=== PATIENT | male | born 1980 | race Caucasian/White ===

== ENCOUNTER 2025-02-25 13:24 | Outpatient (AMB) | payer BC, SELFPAY ==
--- OUTSIDE RECORDS SUMMARY | 2024-01-29 10:30 | XMS_ITS ---
Author Organization [address] [id number] Care Team Providers Care [employer] Worker Name Role Phone Demetris Aranda Unavailable [phone] REASON FOR VISIT ROV/ROF Encounters Encounter Location Date Provider Diagnosis [address] [phone] 01/29/2024 Demetris Aranda Plan Of Treatment No Information Progress Notes * CARENJake Deras SDOB: [birth year] (44 yo M)Acc No.[id number]:01/29/2024 Progress Notes Patient: Ran RIVERS Jake Edel Provider: Ran Aranda ND :1980 A ge:43 Y S ex:Male Date:01/29/2024 Phone: Address:[address] [place] [address], [id number] Subjective: * Chief Complaints: * 1 . ROV/ROF. * Medical History: Objective: * Vitals: Assessment: Plan: * Treatment: * * Electronic signature of Kamila Aranda ND on 02/25/2025 at 01:44 PM EST Sign off status: Pending * Provider: Ran Aranda ND Date: Generated for Tanna gonzalez/Mary/Ap on: 04/27/2024 01:44 PM EST
--- OUTSIDE RECORDS SUMMARY | 2024-02-18 11:00 | XMS_ITS ---
Author Organization [facility] Address [address] [place] [id number] Care Team Providers Care Test Deck Supervisor Name Role Phone Atifparag Demetris Unavailable [phone] REASON FOR VISIT ROV/ROF Medications Medication SIG (Take, Route, Frequency, Duration) Notes Start Date End Date Status valACYclovir HCl 500 MG 1 tablet Orally Once a day Not-Taking Encounters Encounter Location Date Provider Diagnosis [address] [phone] 02/18/2024 Demetris Aranda Assessments Encounter Date Diagnosis (ICD Code) Assessment Notes Treatment Notes Treatment Clinical Notes Section Notes 02/18/2024 Other 30 minutes spent on patient care including: -preparing to see the patient by reviewing past charts, past treatment plans, current and past labs -obtaining and/or reviewing separately obtained history -performing a medically appropriate examination and/or evaluation -counseling and educating the patient and/or family on diagnostic results, impression, recommendations, risk/benefit, instructions, risk factor reduction, and education on condition -recommending supplement usage, tests, or procedures -documenting clinical information in patients chart -independently interpreting results and communicating results to the patient and/or patients family for care coordination Plan Of Treatment No Information Progress Notes * Jake MENDEZ SDOB: [birth year] (44 yo M)Acc No.[id number]:02/18/2024 Progress Notes Patient: Ran PANDYAJake HINOJOSA Provider: Ran Aranda ND :1980 A ge:43 Y S ex:Male Date:02/18/2024 Phone: Address:[address] [place] [address] Subjective: * Chief Complaints: * 1 . ROV/ROF. * HPI: H PI: 08/26/23 reports persistent knee pain saw ortho last fall xray shows some arthritis did not complete PT due to insurance challenges reports slow recovery of hair loss on extremities 02/13/23 medial knee pain bilat multiple spartan races in past few months maintaining crossfit will see ortho next week friend opening PT office locally Hair Loss// persistent off antiviral rx wonder if related to salicylic acid facewash 09/03/22 PHONG, iron, sed rate all WNL pt reports some regrowth now off antiviral rx and will use prn instead of daily ... patchy hair loss over past year + facial, arms, legs bilat. not a random distribution. C C1: Cardio// 08/26/23 did not complete ca score did not recall conversation from last visit back to [facility] usu 2-3x per week variable diet. mostly good 02/13/23 overall well regular exercise more consistent healthy diet off all supplements reviewed cardio IQ reduced IR score lower LDL albeit higher sdLDL apoB stable 09/03/22 continue to train for spartan races in october, nov, dec reviewed cardio IQ higher LDL but lower sdLDL, particle number IR score moderate at 45 discussed dietary sugars, carbs as causative ox LDL wnl omega 3 WNL 08/07/22 did not complete labs reports overall doing well 02/06/22 reports overall doing well lots of hiking through summer [employer] race in dec good for physical/mental health haven't been to gym intermittent with weight 01/16/21 reviewed cardio IQ improvement in LDL, HDL, trigs reports overall doing better with eating, exercise intermittent fasting few days per wk had some weight gain over past months - was up to 245 some recent weight loss down to 233 05/04 reviewed cardio IQ - worsened LDL, trigs, particle numbers, lower omega 3 reports doing moderately okay with eating, activity, stress management difficult to maintain also tested right after holidays discussed pandemic/life stressors doing some intermittent fasting - more days than not fam hx CVD. C C2: Mood// 08/26/23 overall well 2 yrs with girlfriend. moved in, going well keep up with crossfit 02/13/23 mood good stable with regular exercise relationship good therapist 09/03/22 overall well good relationship maintaining with therapist training for Normal 02/06/22 doing well new home. good relationship. weekly with therapist hiking over summer felt great no rx 05/04 maintaining rx fluoxetine mood has been stable hit rough patch with exwife over ambar decided will do more for self will move back to [place] closer to rest of family - plan for [place] in fall maintaining with therapist no longer in relationship actively dating trying to maintain mostly healthy diet, some exercise occas stress eating ... D iet/Exercise: more veggies, whole foods less carbs some intermittent fasting b: skip. eggs, pelayo l: chicken, veg d: varied snack: protein bar, veg liquid: water through day. 3-5 cups coffee. occas energy drink bother: none ... exercise: crossfit hiking hot yoga. D igestion: BM daily WNL denies regular digestive trouble. S leep: 08/26/23 reports significant snoring residue of breath right strips not tolerated saw sleep doctor sleep study scheduled for early september. L bob: live with girlfriend going well 2018 kids half time. 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 S upplements: Vit D3 4000 B12 fish oil hair skin nail metabolism booster formula [employer] mens multi. C are Team: 08/26/23 establishing with PCP in [place] upcoming. * ROS: G eneral/Constitutional: Patient denies c hills, fever, change in appetite, lightheadedness. E NT: Patient denies d ecreased hearing, decreased sense of smell, difficulty swallowing. P atient complaining of h x of ear pain, ear infections - none recently. R espiratory: Patient denies c hest pain, sputum production, wheezing, cough. C ardiovascular: Patient denies d yspnea on exertion, fluid accumulation in the legs, palpitations. G astrointestinal: Patient denies a bdominal pain, change in bowel habits, nausea. H ematology: Patient denies d izziness, easy bruising, weakness. ? G enitourinary: Patient complaining of h erpes simplex II - managed with oral antiviral prn. S kin: Comments S [facility] for details. N eurologic: Patient denies b alance difficulty, difficulty speaking, loss of strength. * Medical History: * Medications: N ot-Taking valACYclovir HCl 500 MG Tablet 1 tablet Orally Once a day Objective: * Vitals: * Examination: G eneral Examination: GENERAL APPEARANCE: a lert, well hydrated, in no distress .? HEAD: n ormocephalic, atraumatic. EYES: p upils equal, round, reactive to light and accommodation, conjunctiva clear. EARS: n ormal. NOSE: e xternal nose- no gross deformities.. NECK/THYROID: n khadijah supple, full range of motion, trachea midline. SKIN: n ormal, good turgor, no rashes, no suspicious lesions, normal hair distribution, warm and dry. LUNGS: n o wheezes, rales, rhonchi. CHEST: n o gross rib deformity, normal shape and expansion.? ABDOMEN: n ondistended. BACK: f ull range of motion, normal. NEUROLOGIC: c ognitive exam grossly normal, cooperative with exam, cranial nerves 2-12 grossly intact, gait normal. PSYCH: a lert, oriented. Assessment: Plan: * Treatment: * Procedure Codes: n show NO SHOW * Preventive Medicine: PT for knee Copy on sleep study Continue current treatments Keep up the healthy diet. Portion Control LImit carbs and sugars Maintain with therapist Fasting labs 2 wks prior to next apt. * * Electronic signature of Kamila Aranda ND on 02/25/2025 at 01:43 PM EST Sign off status: Pending * Provider: Ran Aranda ND Date: 04/19/2023 Generated for Tanna gonzalez/Mary/Ap on: 04/27/2024 01:43 PM EST History and Physical Notes * HPI (History of Present Illness) Category Sub-Category Detail Notes Category Not es Diet/Exercise more veggies, whole foods less carbs some intermittent fasting b: skip. eggs, pelayo l: chicken, veg d: varied snack: protein bar, veg liquid: water through day. 3-5 cups coffee. occas energy drink bother: none ... exercise: crossfit hiking hot yoga HPI 08/26/23 reports persistent knee pain saw ortho last fall xray shows some arthritis did not complete PT due to insurance challenges reports slow recovery of hair loss on extremities 02/13/23 medial knee pain bilat multiple spartan races in past few months maintaining crossfit will see ortho next week friend opening PT office locally Hair Loss// persistent off antiviral rx wonder if related to salicylic acid facewash 09/03/22 PHONG, iron, sed rate all WNL pt reports some regrowth now off antiviral rx and will use prn instead of daily ... patchy hair loss over past year + facial, arms, legs bilat. not a random distribution Supplements Vit D3 4000 B12 fish oil hair skin nail metabolism booster formula [employer] mens multi Lifestyle live with girlfriend going well 2018 kids half time. 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 NECK/THYROID: neck supple, full ra nge of motion, trachea midline CHEST: no gross rib deformi ty, normal shape and expansion LUNGS: no wheezes, rales, r honchi ABDOMEN: nondistended NEUROLOGIC: cognitive exam gross ly normal, cooperative with exam, cranial nerves 2-12 grossly intact, gait normal SKIN: normal, good turgor, no rashes, no suspicious lesions, normal hair distribution, warm and dry BACK: full range of motion , normal PSYCH: alert, oriented
--- OUTSIDE RECORDS SUMMARY | 2024-10-25 10:52 | XMS_ITS ---
Author Organization [facility] Address [address] [place], [place] [phone] Care Team Providers Care Rocket Assembly Operator Name Role Phone DEIDRA MARSHALL Primary Care Provider [phone] REASON FOR VISIT Parameds Medical Records Request Encounters Encounter Location Date Provider Diagnosis [address] [address] 10/25/2024 DEIDRA MARSHALL PLAN OF TREATMENT Next Appt Details Provider Name:DEIDRA MARSHALL, 09/27/2025 09:00:00 AM, [address] [place], [phone],
--- OUTSIDE RECORDS SUMMARY | 2024-11-15 10:36 | XMS_ITS ---
Author Organization [facility] Address [address] [place], [place] [id number] Care Team Providers Care Bulk Sausage Casing Tier Off Name Role Phone DEIDRA MARSHALL Primary Care Provider [phone] REASON FOR VISIT old records PROBLEMS Problem Type ICD Code Onset Dates Problem Status W/U Status Risk SNOMED Code Notes Problem Dyslipidemia (E78.5) Active confirmed 773757674 Problem Low serum HDL (R74.8) Active confirmed 799781698 Encounters Encounter Location Date Provider Diagnosis [address] [address] 11/15/2024 DEIDRA MARSHALL PLAN OF TREATMENT Next Appt Details Provider Name:DEIDRA MARSHALL, 09/27/2025 09:00:00 AM, [address] [place], [address],
--- OUTSIDE RECORDS SUMMARY | 2024-12-21 09:48 | XMS_ITS ---
Author Organization [facility] Address [address] [place], [place] [phone] Care Team Providers Care Credit Representative Name Role Phone DEIDRA MARSHALL Primary Care Provider [phone] Encounters Encounter Location Date Provider Diagnosis [facility] [address] [place] [phone] 12/21/2024 DEIDRA MARSHALL PLAN OF TREATMENT Next Appt Details Provider Name:DEIDRA MARSHALL, 09/27/2025 09:00:00 AM, [address] [place], [address],
--- OUTSIDE RECORDS SUMMARY | 2025-01-31 04:51 | XMS_ITS ---
Author Organization [facility] Address [address] [place], [place] [phone] Care Team Providers Care Hydraulic Governor Assembler Name Role Phone DEIDRA MARSHALL Primary Care Provider REASON FOR VISIT left ear infection Encounters Encounter Location Date Provider Diagnosis [address] [address] 01/31/2025 DEIDRA MARSHALL PLAN OF TREATMENT Next Appt Details Provider Name:DEIDRA MARSHALL, 09/27/2025 09:00:00 AM, [address] [place], [address],
--- OUTSIDE RECORDS SUMMARY | 2025-01-31 05:00 | XMS_ITS ---
Author Organization [facility] Address [address] [place], [place] [phone] Care Team Providers Care Casino Cage Manager Name Role Phone DEIDRA MARSHALL Primary Care Provider REASON FOR VISIT New Insurance Encounters Encounter Location Date Provider Diagnosis [address] [address] 01/31/2025 DEIDRA MARSHALL PLAN OF TREATMENT Next Appt Details Provider Name:DEIDRA MARSHALL, 09/27/2025 09:00:00 AM, [address] [place], [address],
--- OUTSIDE RECORDS SUMMARY | 2025-02-01 05:40 | XMS_ITS ---
Author Organization [facility] Address [address] [place], [place] [phone] Care Team Providers Care Brick Picker Name Role Phone DEIDRA MARSHALL Primary Care Provider [phone] REASON FOR VISIT left ear infection, Inner thigh rash ( from cold plunge ice bath), spreading to outter hips MEDICATIONS Medication SIG (Take, Route, Frequency, Duration) Notes Start Date End Date Status valACYclovir HCl 1 GM 1 tablet Orally On ce a day x 5 days, reuse for recurrence for 15 day(s) 09/04/2023 Active Vitamin D 50 MCG (1999 UT) 1 tablet Oral ly Once a day for 30 day(s) Active Vitamin B Complex - as directed Orally Active Fish Oil 1000 MG 1 capsule Orally Thr ee times a day for 30 day(s) Active Fluconazole 100 MG 1 tablet Orally jose a y for 7 day(s) 02/01/2025 Active Nystatin 065363 UNIT/GM 1 application Ex ternally Twice a day for 10 day(s) 02/01/2025 Active SOCIAL HISTORY Tobacco Use: Social History Observation Description Date Details (start date - stop date) Former Smoker NA - NA Sex Assigned At : Social History Observation Description Sex Assigned At Unknown Smoking Question Answer Notes Are you a: former smoker How long has it been since you last smoked? > 10 years VITAL SIGNS Height 74.0 in 02/01/2025 Weight 257.0 lbs 02/01/2025 Blood pressure systolic 110 mm Hg 02/02/20 25 Blood pressure diastolic 84 mm Hg 025 BMI 32.99 kg/m2 02/01/2025 Encounters Encounter Location Date Provider Diagnosis [facility] [address] [place] [phone] 02/01/2025 DEIDRA MARSHALL Dermatitis L30.9 ; Allergy, initial encounter T78.40XA and Dysfunction of left eustachian tube H69.92 ASSESSMENTS Encounter Date Diagnosis Assessment Notes Treatment Notes Treatment Clinical Notes Section Notes 02/01/2025 Dermatitis (ICD-10 - L30.9) he will call if treatment not resolving the rash and then will consider dermatology referral suspect fungal component to rash , did not respond that well to top steroid cream 02/01/2025 Allergy, initial encounter (ICD-10 - T78.40XA) take zyrtec daily suspect fungal component to rash , did not respond that well to top steroid cream 02/01/2025 Dysfunction of left eustachian tube (ICD-10 - H69.92) intermittent valsalva 3-4 times per day x 5 days suspect fungal component to rash , did not respond that well to top steroid cream PLAN OF TREATMENT Medication Medication Name Sig Start Date Stop Date Notes Fluconazole 100 MG 1 tablet Orally daily for 7 day(s) 01/06 Nystatin 223984 UNIT/GM 1 application Ex ternally Twice a day for 10 day(s) 02/01/2025 Treatment Notes Assessment Notes Dermatitis he will call if mallika tment not resolving the rash and then will consider dermatology referral Allergy, initial encounter take zyrtec d aily Dysfunction of left eustachian tube inte rmittent valsalva 3-4 times per day x 5 days Next Appt Details Provider Name:DEIDRA MARSHALL, 09/27/2025 09:00:00 AM, [address] [place] [address], [phone], History and Physical Notes * HPI (History of Present Illness) Category Sub-Category Detail Notes Category Not es General left ear few da ys like under water in left ear ,no pain. Some fall allergies. Has not been antihistamines in fall. able to valsalva with click. Stress since 2019 and completed divorce 2019. Trying to do exercize outine. Rash thighs groin x 2 wk, Tried 's triamcinolone cream, did not help that much. Physical Examination Category Sub-Category Detail Notes Section Note s HEENT Ears normal CHEST Breath sounds: clear to auscultation NEUROLOGICAL Gait: normal Mental status: Alert and oriented t o person, place, time Cerebellar: normal Speech normal DERMATOLOGY Skin: patch light eryt hematous rash bilateral groin and low abdomen flaky GENERAL General Appearance: well nourish ed, no apparent distress, well developed PSYCHOLOGY Grooming: appropriate Eye contact: normal Mood: pleasant Affect appropriate
--- OUTSIDE RECORDS SUMMARY | 2025-02-07 05:18 | XMS_ITS ---
Author Organization [facility] Address [address], [place] [id number] Care Team Providers Care Load Planner Name Role Phone DEIDRA MARSHALL Primary Care Provider [phone] REASON FOR VISIT Nystatin Cream refill MEDICATIONS Medication SIG (Take, Route, Frequency, Duration) Notes Start Date End Date Status Fish Oil 1000 MG 1 capsule Orally Thr ee times a day for 30 day(s) Active valACYclovir HCl 1 GM 1 tablet Orally On ce a day x 5 days, reuse for recurrence 09/04/2023 Active Vitamin D 50 MCG (1999 UT) 1 tablet Oral ly Once a day for 30 day(s) Active Fluconazole 100 MG 1 tablet Orally jose a y for 7 day(s) 02/01/2025 Active Nystatin 457592 UNIT/GM 1 application Ex ternally Twice a day for 10 day(s) 02/01/2025 Active Vitamin B Complex - as directed Orally Active Encounters Encounter Location Date Provider Diagnosis [facility] [address] [place] [phone] 02/07/2025 DEIDRA MARSHALL Dermatitis L30.9 ASSESSMENTS Encounter Date Diagnosis Assessment Notes Treatment Notes Treatment Clinical Notes Section Notes 02/07/2025 Dermatitis (ICD-10 - L30.9) PLAN OF TREATMENT Medication Medication Name Sig Start Date Stop Date Notes Nystatin 814572 UNIT/GM 1 application Ex ternally Twice a day for 10 day(s) 02/01/2025 Next Appt Details Provider Name:DEIDRA MARSHALL, 09/27/2025 09:00:00 AM, [address] [place] [address], [phone],
--- OUTSIDE RECORDS SUMMARY | 2025-02-15 07:35 | XMS_ITS ---
Author Organization [facility] Address [address] [place], [place] [id number] Care Team Providers Care Curtain Inspector Name Role Phone DEIDRA MARSHALL Primary Care Provider [phone] REASON FOR VISIT Skin Infection MEDICATIONS Medication SIG (Take, Route, Frequency, Duration) Notes Start Date End Date Status Vitamin D 50 MCG (1999) 1 tablet Oral ly Once a day for 30 day(s) Active Vitamin B Complex - as directed Orally Active Nystatin 257418 UNIT/GM 1 application Ex ternally Twice a day for 10 day(s) 02/01/2025 Active Fluconazole 100 MG 1 tablet Orally jose a y for 7 day(s) 02/01/2025 Active valACYclovir HCl 1 GM 1 tablet Orally On ce a day x 5 days, reuse for recurrence 09/04/2023 Active Fish Oil 1000 MG 1 capsule Orally Thr ee times a day for 30 day(s) Active Fluconazole 200 MG 1 tablet Orally jose a y for 14 day(s) 02/15/2025 Active Encounters Encounter Location Date Provider Diagnosis [facility] [address] [place] [address] 02/15/2025 DEIDRA MARSHALL Dermatitis L30.9 ASSESSMENTS Encounter Date Diagnosis Assessment Notes Treatment Notes Treatment Clinical Notes Section Notes 02/15/2025 Dermatitis (ICD-10 - L30.9) PLAN OF TREATMENT Medication Medication Name Sig Start Date Stop Date Notes Fluconazole 200 MG 1 tablet Orally daily for 14 day(s) 02/2025 Next Appt Details Provider Name:DEIDRA MARSHALL, 09/27/2025 09:00:00 AM, [address] [place] [address], [phone],
--- OUTSIDE RECORDS SUMMARY | 2025-02-16 03:08 | XMS_ITS ---
Author Organization [facility] Address [address] [place], [place] [phone] Care Team Providers Care Office System Analyst Name Role Phone DEIDRA MARSHALL Primary Care Provider [phone] REASON FOR VISIT fungal dermatosis tx Encounters Encounter Location Date Provider Diagnosis [address] [address] 02/16/2025 DEIDRA MARSHALL PLAN OF TREATMENT Next Appt Details Provider Name:DEIDRA MARSHALL, 09/27/2025 09:00:00 AM, [address] [place], [address],
--- OUTSIDE RECORDS SUMMARY | 2025-02-22 03:33 | XMS_ITS ---
Author Organization [facility] Address [address] [place], [place] [phone] Care Team Providers Care Material Handling Supervisor Name Role Phone DEIDRA MARSHALL Primary Care Provider REASON FOR VISIT Fluconazole MEDICATIONS Medication SIG (Take, Route, Frequency, Duration) Notes Start Date End Date Status Fluconazole 200 MG 2 tablet Orally jose a y for 7 day(s) 02/15/2025 Active Vitamin D 50 MCG (2000 UT) 1 tablet Oral ly Once a day for 30 day(s) Active Vitamin B Complex - as directed Orally Active Fish Oil 1000 MG 1 capsule Orally Thr ee times a day for 30 day(s) Active valACYclovir HCl 1 GM 1 tablet Orally On ce a day x 5 days, reuse for recurrence 09/04/2023 Active Nystatin 169517 UNIT/GM 1 application Ex ternally Twice a day for 10 day(s) 02/01/2025 Active Fluconazole 100 MG 1 tablet Orally jose a y for 7 day(s) 02/01/2025 Active Encounters Encounter Location Date Provider Diagnosis [facility] [address] [place] [address] 02/22/2025 DEIDRA MARSHALL Dermatitis L30.9 ASSESSMENTS Encounter Date Diagnosis Assessment Notes Treatment Notes Treatment Clinical Notes Section Notes 02/22/2025 Dermatitis (ICD-10 - L30.9) PLAN OF TREATMENT Medication Medication Name Sig Start Date Stop Date Notes Fluconazole 200 MG 2 tablet Orally daily for 7 day(s) 02/05 Next Appt Details Provider Name:DEIDRA MARSHALL, 09/27/2025 09:00:00 AM, [address] [place] [address], [phone],
--- NOTE | 2025-02-25 13:33 | A.OFFVIS_ITS ---
Vital Signs 3 02/25/25 13:34 Height 6 ft Weight 259 lb BMI 35.1 Pulse 85 Pulse Source Pulse Oximeter Pulse Oximetry (%) 96 Oxygen Delivery Method Room Air Intake Visit Reasons: Med Ast/ Resistant Fungal Skin Infectopn Allergies No Known Allergies Allergy (Verified 02/25/25 13:34) HPI HPI Med Ast/ Resistant Fungal Skin Infectopn: Details: He presents with initial macuopapular or vesicular skin lesions several months ago that changed to scaly lesions today. They are present over trunk and chest and are scaly now. He has no fever or chills. [facility] Medical History (Updated 03/03/25 @ 21:13 by Shanda Nicholson MD) Rash Review of Systems Const All systems reviewed & are unremarkable except as noted in HPI and below Physical Exam Vital Signs: Last Vital Signs Pulse 85 02/25/25 13:34 Pulse Ox 96 02/25/25 13:34 Oxygen Delivery Method Room Air 02/25/25 13:34 BMI result Body Mass Index 35.1 Const Other: General: cooperative Orientation/consciousness: patient oriented x3 HEENT Head: Yes normal to inspection Mouth: Normal oral and palatal mucosa present Eyes General: appearance normal, both eyes and all related structures Pupils: Equal, round and reactive pupils present Resp Effort & Inspection: normal respiratory effort Cardio Rate: regular rate Rhythm: regular rhythm GI Palpation (GI): Soft to palpation and nontender General: Yes no CVA tenderness Back/Spine/Pelvis Back: no CVA tenderness Skin Other: scaly skin over back and chest per picture Neuro General: patient oriented x3 Cranial nerves: Yes CN's II-XII intact bilaterally and Yes Equal, round and reactive pupils present Extrem General: Yes normal to inspection Psych Appearance: grossly normal Assessment & Plan Assessment & Plan (1) Rash: Comment: He has rash most likely tinea versicolor But hasnt responded to antifungals Code(s): R21 - Rash and other nonspecific skin eruption Category: Medical Plan: Would try selenium sulfide topically (ordered) See back prn need (may take month or two to work). Medications: New 2 selenium sulfide 2.5% 1 appl topical DAILY 120 mL 0RF 30 days Coding Level of Care Code Tele New Pt Level 3 (03350) Diagnoses Rash R21
[2025-02-25 13:34] VITALS: PULSE 85; O2SAT 96; BMI 35.1
--- OUTSIDE RECORDS SUMMARY | 2025-02-25 13:44 | XMS_ITS | Patient Health Record ---
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) Referral Organization [facility] Referring Provider First Name DEIDRA Referring Provider Last Name ROLANDO Referring Provider Speciality Internal M edicine Referred Provider Specialty Infectious D isease General Notes DEIDRA MARSHALL 2024 04:50:56 PM > Dr Shanda Nicholson [address] [place] [address], [phone], Sofia BURNETTE [place] 02/18/2025 09:10:35 AM > [phone] faxed referral and last ov notes Referral Priority Routine MEDICATIONS Medication SIG (Take, Route, Frequency, Duration) Notes Start Date End Date Status Fluconazole 200 MG 2 tablet Orally jose a y for 7 day(s) 02/15/2025 Active Vitamin D 50 MCG (1999 UT) 1 tablet Oral ly Once a day for 30 day(s) Active Vitamin B Complex - as directed Orally Active Fish Oil 1000 MG 1 capsule Orally Thr ee times a day for 30 day(s) Active Nystatin 601653 UNIT/GM 1 application Ex ternally Twice a day for 10 day(s) 02/01/2025 Active Fluconazole 100 MG 1 tablet Orally jose a y for 7 day(s) 02/01/2025 Active valACYclovir HCl 1 GM 1 tablet Orally On ce a day x 5 days, reuse for recurrence 09/04/2023 Active SOCIAL HISTORY Tobacco Use: Social History Observation Description Date Details (start date - stop date) Former Smoker NA - NA Sex Assigned At : Social History Observation Description Sex Assigned At Unknown Smoking Question Answer Notes Are you a: former smoker How long has it been since you last smoked? > 10 years PROBLEMS Problem Type ICD Code Onset Dates Problem Status W/U Status Risk SNOMED Code Notes Problem EARLENE (obstructive sleep apnea) (G47.33) Active confirmed 57214149 Problem BMI 32.0-32.9,adult (Z68.32) Active confirmed 779705786 Problem Low serum HDL (R74.8) Active confirmed 792304719 Problem Dyslipidemia (E78.5) Active confirmed 414843949 Problem Arthritis of knee (M17.10) Active confirmed 665167309 VITAL SIGNS Blood pressure diastolic 84 mm Hg 02/01/2025 Height 74.0 in 02/01/2025 Blood pressure systolic 110 mm Hg 02/01/2025 Weight 257.0 lbs 02/01/2025 BMI 32.99 kg/m2 02/01/2025 Encounters Encounter Location Date Provider Diagnosis [address] [address] 09/09/2024 DEIDRA MARSHALL [address] [address] 09/10/2024 DEIDRA MARSHALL [address] [address] 09/23/2024 DEIDRA MARSHALL Annual physical exam Z00.00 ; Colon cancer screening Z12.11 ; EARLENE (obstructive sleep apnea) G47.33 and BMI 32.0-32.9,adult Z68.[address] [address] 10/25/2024 DEIDRA MARSHALL [address] [address] 11/15/2024 DEIDRA MARSHALL [facility] [address] [address] 12/21/2024 DEIDRA MARSHALL [address] [address] 01/31/2025 DEIDRA MARSHALL [facility] [address] [place] [address] 01/31/2025 DEIDRA MARSHALL [address] [address] 02/01/2025 DEIDRA MARSHALL Dermatitis L30.9 ; Allergy, initial encounter T78.40XA and Dysfunction of left eustachian tube H69.92 [place] [phone] 02/07/2025 DEIDRA MARSHALL Dermatitis L30.[address] [address] 02/15/2025 DEIDRA ROLANDO Dermatitis L30.[address] [address] 02/16/2025 DEIDRA MARSHALL [place] [phone] 02/22/2025 DEIDRA MARSHALL Dermatitis L30.9 ASSESSMENTS Encounter Date Diagnosis Assessment Notes Treatment Notes Treatment Clinical Notes Section Notes 09/23/2024 Colon cancer screening (ICD-10 - Z12.11) cologuard sent; he will use the Cologuard order form copy to call them in 3 wks if not heard from them he declied colonoscopy screening and opted for cologuard; I completed the cologuard order form and gave him copy 09/23/2024 Annual physical exam (ICD-10 - Z00.00) he declied colonoscopy screening and opted for cologuard; I completed the cologuard order form and gave him copy 02/01/2025 Dermatitis (ICD-10 - L30.9) he will call if treatment not resolving the rash and then will consider dermatology referral suspect fungal component to rash , did not respond that well to top steroid cream 02/01/2025 Allergy, initial encounter (ICD-10 - T78.40XA) take zyrtec daily suspect fungal component to rash , did not respond that well to top steroid cream 02/07/2025 Dermatitis (ICD-10 - L30.9) 02/15/2025 Dermatitis (ICD-10 - L30.9) 02/22/2025 Dermatitis (ICD-10 - L30.9) 09/23/2024 EARLENE (obstructive sleep apnea) (ICD-10 - G47.33) better w ith the mouthguard and f/u ENT on sleep study he declied colonoscopy screening and opted for cologuard; I completed the cologuard order form and gave him copy 02/01/2025 Dysfunction of left eustachian tube (ICD-10 - H69.92) intermittent valsalva 3-4 times per day x 5 days suspect fungal component to rash , did not respond that well to top steroid cream 09/23/2024 BMI 32.0-32.9,adult (ICD-10 - Z68.32) continue to work on reduced wimple carbs reg walking he declied colonoscopy screening and opted for cologuard; I completed the cologuard order form and gave him copy 09/23/2024 Other he will do labs thru [facility] [place] and mail me copy he declied colonoscopy screening and opted for cologuard; I completed the cologuard order form and gave him copy PLAN OF TREATMENT Future Test Test Name Order Date Iron and [id number] 10/20/2023 [id number] 10/20/2023 Viral Hepatitis HBV, [id number] 10/20/19 24 ALT ([id number] 01/19/2024 Next Appt Details Provider Name:DEIDRA MARSHALL, 09/27/2025 09:00:00 AM, [address] [place], [address], Insurance Providers Payer Name Payer Address Payer Phone Subscriber Number Group Number Insured Name Patient Relationship to Insured Coverage Start Date Coverage End Date [facility] [address] [place] [address] [id number] SUSANA MENDEZ Self - patient is the insured MEDICAL (GENERAL) HISTORY Medical History History ICD Code geniital herpes arthritis knee rt Surgical History Surgery Date(Month/Year) Vasectomy 01/27 Rt knee meniscal repair 07/2024
--- OUTSIDE RECORDS SUMMARY | 2025-02-25 13:44 | XMS_ITS | Patient Health Record ---
Author Organization [facility] Address [address] [place] [id number] Care Team Providers Care Html Web Developer Name Role Phone Demetris Aranda Unavailable [phone] Allergies No Known Allergies Results Component Value Reference Range Notes CARDIO IQ(R) INSULIN RESISTA NCE PANEL WITH SCORE Reviewed date:11/14/2024 07:25:41 PM Interpretation: Performing Lab:[facility],[address] [facility]ranoCA[address] Awilda aDmon MD,PhD,[place] Notes/Report: Received Date: CC: VONDA GAY FASTING:YES FASTING: YES INSULIN, INTACT, LC/MS/MS 12 < OR = 16 uIU/m L Insulin concentration can be converted to pmol/L by applying the conversion factor: 1 uIU/mL = 5.97 pmol/L For additional information, please refer to http://education.IPNetVoice.Globitel/faq/GHU027 (This link is being provided for informational/educational purposes only.) This test was developed and its analytical performance characteristics have been determined by [facility]. It has not been cleared or approved by the FDA. This assay has been validated pursuant to the CLIA regulations and is used for clinical purposes. C-PEPTIDE, LC/MS/MS 1.87 0.68-2.16 ng/mL INSULIN RESISTANCE SCORE 48 < OR = 66 Insulin Sensitive < 33; Impaired Insulin Sensitivity 33-66; Insulin Resistant >66 A score below 33 is optimal. The insulin resistance score correlates with steady state glucose levels achieved during an insulin suppression test, a standard research test for insulin resistance. The score is based on insulin and C-peptide results (Aida Rodrigues, Humberto D, Bertram GOLDSTEIN, et al. Insulin resistance probability scores for apparently healthy individuals. J Endocr Soc. 2018;2(9):3837-6896). For additional information, please refer to http://education.[employer]/faq/QTM371 (This link is being provided for informational/educational purposes only.) This test was developed and its analytical performance characteristics have been determined by [facility]. It has not been cleared or approved by the FDA. This assay has been validated pursuant to the CLIA regulations and is used for clinical purposes. Cardio IQ(R) Oxidized LDL Reviewed date:11/14/2024 07:25:41 PM Interpretation: Performing Lab:[facility], [address], [place] Elisa Clifton Notes/Report: Received Date: [id number] CC: VONDA GAY FASTING:YES FASTING: YES OxLDL 54 <60 U/L Based on a recent study of an 'apparently healthy' and non-metabolic syndrome population(1), the following cut-offs have been defined for OxLDL: A cut-off of <60 U/L defines a population with a low relative risk of developing metabolic syndrome, a range of 60 to 69 U/L defines a population with a moderate relative risk (2.8 fold) and >=70 U/L defines a population with a high relative risk (3.5-fold). (Reference: 1-Ruperto et al. GULSHAN. 2008; 299: 4789-0893.) CARDIO IQ(R) ADVANCED LIPID PANEL AND INFLAMMATION PANEL Reviewed date:11/14/2024 07:25:41 PM Interpretation: Performing Lab:[facility], [address], [place] Elisa Clifton Notes/Report: Received Date: [id number] CC: VONDA GAY FASTING:YES FASTING: YES CHOLESTEROL, TOTAL 169 <200 mg/dL HDL CHOLESTEROL 35 >39 mg/dL TRIGLYCERIDES 152 <150 mg/dL LDL-CHOLESTEROL 107 <100 mg/dL (calc) Desirable range <100 mg/dL for primary prevention; <70 mg/dL for patients with CHD or diabetic patients with >= 2 CHD risk factors. LDL-C is now calculated using the Keaton-Meneses calculation, which is a validated novel method providing better accuracy than the Friedewald equation in the estimation of LDL-C. Keaton SS et al. GULSHAN. 2013;310(19): 7881-0899 (http://education.[employer].com/faq/EMU678) LDL-C is now calculated using the Keaton-Meneses calculation, which is a validated novel method providing better accuracy than the Friedewald equation in the estimation of LDL-C. Keaton SS et al. GULSHAN. 2013;310(19): 3754-1716 (http://education.[employer].Globitel/faq/ZIZ769) CHOL/HDLC RATIO 4.8 <5.0 calc NON HDL CHOLESTEROL 134 <130 mg/dL (calc) For patients with diabetes plus 1 major ASCVD risk factor, treating to a non-HDL-C goal of <100 mg/dL (LDL-C of <70 mg/dL) is considered a therapeutic option. For patients with diabetes plus 1 major ASCVD risk factor, treating to a non-HDL-C goal of <100 mg/dL (LDL-C of <70 mg/dL) is considered a therapeutic option. LDL PARTICLE NUMBER 1868 <1138 nmol/L Relative Risk: Optimal <1138; Moderate 7756-9192; High >1409. Male and Female Reference Range: 1016 to 2185 nmol/L. LDL SMALL 535 <142 nmol/L Relative Risk: Optimal <142; Moderate 142-219; High >219. Male Reference Range: 123 to 441 nmol/L; Female Reference Range: 115 to 386 nmol/L. LDL MEDIUM 365 <215 nmol/L Relative Risk: Optimal <215; Moderate 215-301; High >301. Male Reference Range: 167 to 485 nmol/L; Female Reference Range: 121 to 397 nmol/L. HDL LARGE 5993 >6729 nmol/L Relative Risk: Optimal >6729; Moderate 4487-5403; High <5353. Male Reference Range: 4334 to 29454 nmol/L; Female Reference Range: 5038 to 89233 nmol/L. LDL PATTERN B A Pattern Relative Risk: Optimal Pattern A; High Pattern B. Reference Range: Pattern A. LDL PEAK SIZE 211.7 >222.9 Angstrom This test was developed and its analytical performance characteristics have been determined by [facility]. It has not been cleared or approved by the U.S. Food and Drug Administration. This assay has been validated pursuant to the CLIA regulations and is used for clinical purposes. Relative Risk: Optimal >222.9; Moderate 222.9-217.4; High <217.4. Male and Female Reference Range: 216 to 234.3 Angstrom. Adult cardiovascular event risk category cut points (optimal, moderate, high) are based on an adult [place] reference population plus two large cohort study populations. Association between lipoprotein subfractions and cardiovascular events is based on Meirunreaganu et al. ATVB.2009;29:1975. For additional information, please refer to http://education.[employer]/faq/QGY548 (This link is being provided for informational/educational purposes only.) APOLIPOPROTEIN B 94 <90 mg/dL Reference Range <90 Risk Category: Optimal <90 Moderate 90-129 High > or = 130 A desirable treatment target may be <80 mg/dL or lower depending on the risk category of the patient including patients on lipid lowering therapies, patients with ASCVD, diabetes with >1 risk factors, Stage 3 or greater CKD with albuminuria, or heterozygous familial hypercholesterolemia. ApoB relative risk category cut points are based on AACE/PAM and ACC/AHA recommendations (Larissa SM, et al. 2019. doi:10.1016/j.jacc.2018.11. 002; Vincenzo Y, et al. 2020. doi:10.4158/EE-5316-9334). LIPOPROTEIN (a) <10 <75 nmol/L Risk: Optimal <75 nmol/L; Moderate 75-125 nmol/L; High >125 nmol/L. Cardiovascular event risk category cut points (optimal, moderate, high) are based on Alba Hollingsworth. JACC 2017;69:692-711. HS CRP 2.1 <1.0 mg/L Reference Range: Optimal <1.0 mg/L, according to Babs PAT et al. Endocr Pract.2017;23(Suppl 2):1-87. The AHA/CDC Guidelines recommend hs-CRP ranges for identifying Relative Cardiovascular Risk in patients ages >17 years: <1.0 mg/L Lower Relative Cardiovascular Risk; 1.0-3.0 mg/L Average Relative Cardiovascular Risk; 3.1-10.0 mg/L Higher Relative Cardiovascular Risk. If result is between 3.1 and 10.0 mg/L, consider retesting in 1-2 weeks to exclude a benign transient elevation secondary to infection or inflammation from the baseline CRP value. Persistent elevations of >10.0 mg/L upon retesting may be associated with infection and inflammation. The AHA/CDC recommendations are based on Ari Castellon, Unruly SALDAÑA, et al. Markers of inflammation and cardiovascular disease: application to clinical and public health practice: A statement for healthcare professionals from the Centers for Disease Control and Prevention and the [place] [employer]. Circulation 2003; 107(3): 499-511. For ages >17 Years: hs-CRP mg/L Risk According to AHA/CDC Guidelines <1.0 Lower relative cardiovascular risk. 1.0-3.0 Average relative cardiovascular risk. 3.1-10.0 Higher relative cardiovascular risk. Consider retesting in 1 to 2 weeks to exclude a benign transient elevation in the baseline CRP value secondary to infection or inflammation. >10.0 Persistent elevation, upon retesting, may be associated with infection and inflammation. Ari Castellon, Unruly SALDAÑA, et al. Markers of inflammation and cardiovascular disease: application to clinical and public health practice: A statement for healthcare professionals from the Centers for Disease Control and Prevention and the [place] [employer]. Circulation 2003; 107(3): 499-511. LP PLA2 ACTIVITY 99 <124 nmol/min/mL Relative Risk: Optimal <=123 nmol/min/mL; High >123 nmol/min/mL. This test was developed and its analytical performance characteristics have been determined by [facility]. It has not been cleared or approved by the FDA. This assay has been validated pursuant to the CLIA regulations and is used for clinical purposes. See Note 1 Note 1 This test was developed and its analytical performance characteristics have been determined by [facility]. It has not been cleared or approved by the FDA. This assay has been validated pursuant to the CLIA regulations and is used for clinical purposes. CARDIO IQ(R) MYELOPEROXIDASE (MPO) Reviewed date:11/14/2024 07:25:41 PM Interpretation: Performing Lab:[facility], [address], [place] Elisa Bedoyaari Notes/Report: Received Date: CC: VONDA GAY FASTING:YES FASTING: YES MYELOPEROXIDASE 274 <470 pmol/L This test was developed and its analytical performance characteristics have been determined by [facility]. It has not been cleared or approved by the U.S. Food and Drug Administration. This assay has been validated pursuant to the CLIA regulations and is used for clinical purposes. Based on a high risk sub-population (N=[id number]) defined as ambulatory stable patients without acute coronary syndrome who underwent elective diagnostic coronary angiography (1) and a reference range study of apparently healthy donors, we have defined the following cut-offs for MPO: A cut-off of <470 pmol/L defines an 'apparently healthy' population at optimal relative risk for a cardiovascular event, 470-539 pmol/L defines a population at moderate relative risk for a cardiovascular event (2-fold increased risk of MACE at 3 years), and > = 540 pmol/L defines a population with a high relative risk for a cardiovascular event. (Reference: 1. Carlos et al. Am J Cardiol. 2013; 111:465-470 and personal communication with Carlos et al). CARDIO IQ(TM) VITAMIN D, 25 HYDROXY, LC/MS/MS Reviewed date:11/14/2024 07:25:41 PM Interpretation: Performing Lab:[facility]/Mary Kay RobertoFelisa [id number] Evonne Gabriel, [place]AV[address] Bud Funk M.D.,PhD Notes/Report: Received Date: CC: VONDA GAY FASTING:YES FASTING: YES VITAMIN D, 25-OH, TOTAL 39 30-100 ng/mL Vitamin D, 25-Hydroxy reports concentrations of two common forms, 25-OHD2 and 25-OHD3. 25-OHD3 indicates both endogenous production and supplementation. 25-OHD2 is an indicator of exogenous sources such as diet or supplementation. Therapy is based on measurement of Total 25-OHD, with levels <20 ng/mL indicative of Vitamin D deficiency, while levels between 20 ng/mL and 30 ng/mL suggest insufficiency. Optimal levels are > or = 30 ng/mL. For additional information, please refer to http://education.IPNetVoice.Globitel/faq/SBT062 (This link is being provided for informational/ educational purposes only.) VITAMIN D, 25-OH, D3 39 This test was developed and its analytical performance characteristics have been determined by [facility] [place]. It has not been cleared or approved by the U.S. Food and Drug Administration. This assay has been validated pursuant to the CLIA regulations and is used for clinical purposes. VITAMIN D, 25-OH, D2 <4 This test was developed and its analytical performance characteristics have been determined by [facility] [place]. It has not been cleared or approved by the U.S. Food and Drug Administration. This assay has been validated pursuant to the CLIA regulations and is used for clinical purposes. CARDIO IQ(TM) HEMOGLOBIN A1c Reviewed date:11/14/2024 07:25:41 PM Interpretation: Performing Lab:[facility] CenterNvvjexdtxTF[address] Elisa Clifton Notes/Report: Received Date: [id number] CC: VONDA GAY FASTING:YES FASTING: YES HEMOGLOBIN A1c 5.3 <5.7 % For the purpose of screening for the presence of diabetes: <5.7% is consistent with the absence of diabetes; 5.7-6.4% is consistent with increased risk for diabetes (prediabetes); >= 6.5% is consistent with diabetes. This assay result is consistent with a decreased risk of diabetes. Currently, no consensus exists regarding use of hemoglobin A1c for diagnosis of diabetes in children. According to [place] Diabetes Association (ADA) guidelines, hemoglobin A1c <7.0% represents optimal control in non- diabetic patients. Different metrics may apply to specific patient populations. Standards of Medical Care in Diabetes (ADA). This test was performed on the Wally kristen c503 platform. Effective 06/10/2023, a change in test platforms from the [employer] to the Wally kristen c503 may have shifted HbA1c results compared to historical results. Based on laboratory validation testing conducted at [facility], the Wally platform relative to the Rob platform had an average increase in HbA1c value of <=0.3%. This difference is within accepted variability established by the National Glycohemoglobin Standardization Program. Note that not all individuals will have had a shift in their results and direct comparisons between historical and current results for testing conducted on different platforms is not recommended. CBC (INCLUDES DIFF/PLT) Reviewed date:11/14/2024 07:25:41 PM Interpretation: Performing Lab:[facility] [place] [address] Christy Carey M.D. Notes/Report: Received Date: [id number] CC: VONDA GAY FASTING:YES FASTING: YES WHITE BLOOD CELL COUNT 4.4 3.8-10.8 Thousand/ uL RED BLOOD CELL COUNT 5.03 4.20-5.80 Million/uL HEMOGLOBIN 14.5 13.2-17.1 g/dL HEMATOCRIT 44.5 38.5-50.0 % MCV 88.5 80.0-100.0 fL MCH 28.8 27.0-33.0 pg MCHC 32.6 32.0-36.0 g/dL For adults, a slight decrease in the calculated MCHC value (in the range of 30 to 32 g/dL) is most likely not clinically significant; however, it should be interpreted with caution in correlation with other red cell parameters and the patient's clinical condition. RDW 12.8 11.0-15.0 % PLATELET COUNT 214 140-400 Thousand/uL MPV 11.0 7.5-12.5 fL ABSOLUTE NEUTROPHILS 2464 9198-7300 cells/uL ABSOLUTE LYMPHOCYTES 9764 998-8028 cells/uL ABSOLUTE MONOCYTES 308 200-950 cells/uL ABSOLUTE EOSINOPHILS 110 15-500 cells/uL ABSOLUTE BASOPHILS 40 0-200 cells/uL NEUTROPHILS 56 LYMPHOCYTES 33.6 MONOCYTES 7.0 EOSINOPHILS 2.5 BASOPHILS 0.9 COMPREHENSIVE METABOLIC PANE L Reviewed date:11/14/2024 07:25:41 PM Interpretation: Performing Lab:[email or web address], [facility] [address] Christy Carey M.D. Notes/Report: Received Date: [id number] CC: VONDA GAY FASTING:YES FASTING: YES GLUCOSE 92 65-99 mg/dL Fasting reference interval UREA NITROGEN (BUN) 15 7-25 mg/dL CREATININE 0.89 0.60-1.29 mg/dL EGFR 108 > OR = 60 mL/min/1.73m2 BUN/CREATININE RATIO SEE NOTE: 6-22 (calc) Not Reported: BUN and Creatinine are within reference range. SODIUM 140 135-146 mmol/L POTASSIUM 5.1 3.5-5.3 mmol/L CHLORIDE 104 98-110 mmol/L CARBON DIOXIDE 30 20-32 mmol/L CALCIUM 9.3 8.6-10.3 mg/dL PROTEIN, TOTAL 6.4 6.1-8.1 g/dL ALBUMIN 4.2 3.6-5.1 g/dL GLOBULIN 2.2 1.9-3.7 g/dL (calc) ALBUMIN/GLOBULIN RATIO 1.9 1.0-2.5 (calc) BILIRUBIN, TOTAL 0.4 0.2-1.2 mg/dL ALKALINE PHOSPHATASE 58 36-130 U/L AST 18 10-40 U/L ALT 32 9-46 U/L COPY(IES) SENT TO: Reviewed date:11/14/2024 07:25:41 PM Interpretation: Performing Lab: Notes/Report: Received Date: [id number] CC: VONDA GAY FASTING:YES FASTING: YES COPY(IES) SENT TO: [address] [address] Reason For Referral No Information Medications Medication SIG (Take, Route, Frequency, Duration) Notes Start Date End Date Status valACYclovir HCl 500 MG 1 tablet Orally Once a day Not-Taking Problems Problem Type SNOMED Code ICD Code Onset Dates Problem Status W/U Status Risk Notes Problem Allergic rhinitis caused by pollen (disorder) (45802375) Allergic rhinitis due to pollen (477.0) 06/23/19 13 Active confirmed (Dhaval) Problem Dermatophytosis of foot (0501310) Dermatophytosis of foot (110.4) Active confirmed Problem 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 Problem Pain of ear (finding) (881242816) Unspecified otalgia (388.70) Active confirmed Problem Contact dermatitis (25510107) Contact dermatitis and other eczema, due to unspecified cause (692.9) Active confirmed Problem Vitamin D deficiency (26048703) Vitamin D deficiency, unspecified (E55.9) Active confirmed Problem Essential fatty acid deficiency (723166804) Essential fatty acid [EFA] deficiency (E63.0) Active confirmed Problem Overweight (065496437) Overweight (E66.3) Active confirmed Problem Mixed hyperlipidemia (703426974) Mixed hyperlipidemia (E78.2) Active confirmed Problem Adjustment disorder with depressed mood (10320053) Adjustment disorder with depressed mood (F43.21) Active confirmed Problem Obstructive sleep apnea syndrome (disorder) (72228688) Obstructive sleep apnea (adult) (pediatric) (G47.33) Active confirmed Problem Sleep disorder (61762830) Sleep disorder, unspecified (G47.9) Active confirmed Problem Hemorrhoids (21826198) Unspecified hemorrhoids (K64.9) Active confirmed Problem Atopic dermatitis (67116416) Atopic dermatitis, unspecified (L20.9) Active confirmed Problem Body mass index 30.00 to 34.99 (767243437430025) Body mass index [BMI] 31.0-31.9, adult (Z68.31) Active confirmed Problem Body mass index 30.00 to 34.99 (943841628791172) Body mass index [BMI] 32.0-32.9, adult (Z68.32) Active confirmed Vital Signs Height 73 in 11/22/2024 SELF REPORTED Weight 250 lbs 11/22/2024 SELF REPORTED BMI 32.98 kg/m2 11/22/2024 SELF REPORTED Encounters Encounter Location Date Provider Diagnosis [address] [id number] 11/22/2024 Demetris Fasullo Mixed hyperlipidemia E78.2 ; Other abnormal glucose R73.09 ; Overweight E66.3 ; Body mass index [BMI] 32.0-32.9, adult Z68.32 ; Obstructive sleep apnea (adult) (pediatric) G47.33 and Person consulting for explanation of examination or test findings Z71.[address] [id number] 09/23/2024 Demetris Fasullo Mixed hyperlipidemia E78.2 ; Other abnormal glucose R73.09 ; Overweight E66.3 ; Vitamin D deficiency, unspecified E55.9 ; Obstructive sleep apnea (adult) (pediatric) G47.33 and Other fatigue R53.83 [facility] [address] [place], [place] [id number] 11/22/2024 Demetris Aranda Assessments Encounter Date Diagnosis (ICD Code) Assessment Notes Treatment Notes Treatment Clinical Notes Section Notes 09/23/2024 Mixed hyperlipidemia (ICD-10 - E78.2) 11/22/2024 Mixed hyperlipidemia (ICD-10 - E78.2) rov/rof via telehealth. mixed improvements and worsening of cardiometabolic panel. pt admits weight gain. counseling and discussion regarding lifestyle factors 11/22/2024 Other abnormal glucose (ICD-10 - R73.09) rov/rof via telehealth. mixed improvements and worsening of cardiometabolic panel. pt admits weight gain. counseling and discussion regarding lifestyle factors 09/23/2024 Other abnormal glucose (ICD-10 - R73.09) 11/22/2024 Overweight (ICD-10 - E66.3) rov/rof via telehealth. mixed improvements and worsening of cardiometabolic panel. pt admits weight gain. counseling and discussion regarding lifestyle factors 09/23/2024 Overweight (ICD-10 - E66.3) 11/22/2024 Body mass index [BMI] 32.0-32.9, adult (ICD-10 - Z68.32) rov/rof via telehealth. mixed improvements and worsening of cardiometabolic panel. pt admits weight gain. counseling and discussion regarding lifestyle factors 11/22/2024 Obstructive sleep apnea (adult) (pediatric) (ICD-10 - G47.33) rov/rof via telehealth. mixed improvements and worsening of cardiometabolic panel. pt admits weight gain. counseling and discussion regarding lifestyle factors 09/23/2024 Vitamin D deficiency, unspecified (ICD-10 - E55.9) 09/23/2024 Obstructive sleep apnea (adult) (pediatric) (ICD-10 - G47.33) 11/22/2024 Person consulting for explanation of examination or test findings (ICD-10 - Z71.2) rov/rof via telehealth. mixed improvements and worsening of cardiometabolic panel. pt admits weight gain. counseling and discussion regarding lifestyle factors 09/23/2024 Other fatigue (ICD-10 - R53.83) 11/22/2024 Other Limitations of telehealth discussed license number provided patient location: secure, private physician location: office 30 minutes spent on patient care including: -preparing to see the patient by reviewing past charts, past treatment plans, current and past labs -obtaining and/or reviewing separately obtained history -performing a medically appropriate examination and/or evaluation -counseling and educating the patient and/or family on diagnostic results, impression, recommendations , risk/benefit, instructions, risk factor reduction, and education on condition -recommending supplement usage, tests, or procedures -documenting clinical information in patients chart -independently interpreting results and communicating results to the patient and/or patients family for care coordination rov/rof via telehealth. mixed improvements and worsening of cardiometabolic panel. pt admits weight gain. counseling and discussion regarding lifestyle factors Plan Of Treatment Pending Test Test Name Order Date COMPREHENSIVE METABOLIC PANEL 08/26/2023 CBC (INCLUDES DIFF/PLT) 08/26/2023 CARDIO IQ(TM) HEMOGLOBIN A1c 08/26/2023 CARDIO IQ(TM) VITAMIN D, 25 HYDROXY, LC/ MS/MS 08/26/2023 CARDIO IQ(R) MYELOPEROXIDASE (MPO) 08/25 CARDIO IQ(R) ADVANCED LIPID PANEL AND IN FLAMMATION PANEL 08/26/2023 Cardio IQ(R) Oxidized LDL 08/26/2023 OMEGACHECK(TM) 08/26/2023 CARDIO IQ(R) INSULIN RESISTANCE PANEL WI TH SCORE 08/26/[address] Score 02/13/2023 Insurance Providers Payer Name Payer Address Payer Phone Subscriber Number Group Number Insured Name Patient Relationship to Insured Coverage Start Date Coverage End Date 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
--- OUTSIDE RECORDS SUMMARY | 2025-02-25 13:44 | XMS_ITS | Clinical Summary ---
Author Organization [facility] ity Address [address] [place] [address] Care Team Providers Care Boat Engines Installer Name Role Phone Unavailable Primary Care Provider Unavailabl e Social History Tobacco Use Types Packs/Day Years Used Date Smoking Tobacco: Never Assessed Sex and Gender Information Value Date Recorded Sex Assigned at Not on file Legal Sex Male 1:18 PM EST Gender Identity Not on file Sexual Orientation Not on file Plan of Treatment Health Maintenance Due Date Last Done Comments Colorectal Cancer Screening: Colonoscopy 1979 DTaP,Tdap,and Td Vaccines (1 - Tdap) 1998 Hepatitis B Vaccines (1 of 3 - 19+ 3-dose series) 1998 HPV Vaccines (1 - 3-dose SCD M series) 2006 Cholesterol Screening (Lipid Panel) 03/05/2022 HIV Screening 03/05/2022 Hepatitis C Screening 03/05/2022 Social Influencers of Health Screening 03/05/2022 Depression Screening 04/07/2024 COVID-19 Vaccine (1 - 2024-2 6 season) 2024 Influenza Vaccine (#1) 2024 RSV Immunization Adult Patie nts (1 - 1-dose 75+ series) 2054 HIB Vaccines Aged Out No longer eligi ble based on patient's age to complete this topic Hepatitis A Vaccines Aged Out No long er eligible based on patient's age to complete this topic IPV Vaccines Aged Out No longer eligi ble based on patient's age to complete this topic MMR Vaccines Aged Out No longer eligi ble based on patient's age to complete this topic Meningococcal ACWY Vaccine Aged Out N o longer eligible based on patient's age to complete this topic Meningococcal B Vaccine Aged Out No l onger eligible based on patient's age to complete this topic Pneumococcal Vaccine: Pediat rics (0 to 5 Years) and At-Risk Patients (6 to 49 Years) Aged Out No longer eligible b ased on patient's age to complete this topic RSV Immunization Patients Un cl 20 months Aged Out No longer eligible b ased on patient's age to complete this topic Varicella Vaccines Aged Out No longer eligible based on patient's age to complete this topic
--- OUTSIDE RECORDS SUMMARY | 2025-02-25 13:45 | XMS_ITS | Clinical Summary ---
Author Organization [facility] Address [address] [place] [address] Care Team Providers Care Agricultural Research Technician Name Role Phone Unknown, Primary Care Provider Unavailabl e Social History Tobacco Use Types Packs/Day Years Used Date Smoking Tobacco: Never Assessed Sex and Gender Information Value Date Recorded Sex Assigned at Not on file Gender Identity Not on file Sexual Orientation Not on file Job Start Date Occupation Industry Not on file Not on file Not on file Plan of Treatment Health Maintenance Due Date Last Done Comments Hepatitis B Vaccines (1 of 3 - 3-dose series) 1979 Hepatitis C Screening 1979 COVID-19 Vaccine (#1) 1979 Depression Screening 1991 Preventative Health Evaluation 1997 DTap / Tdap / Td (1 - Tdap) 1998 Colon Cancer Screening (Colonoscopy) 2024 Influenza Vaccine (#1) 2024 Pneumococcal Vaccine Aged Out No long er eligible based on patient's age to complete this topic RSV Ped < 20 months Aged Out No longe r eligible based on patient's age to complete this topic Care Teams Agricultural Research Technician Relationship Specialty Start Date End Date Unknown, PCP - General 08/07/23
--- OUTSIDE RECORDS SUMMARY | 2025-02-25 13:45 | XMS_ITS | Clinical Summary ---
Author Organization [facility] Address [address] [place] [address] Care Team Providers Care Well Puller Head Name Role Phone Sly Marrero DO Primary Care Provider [phone] Medications No known medications Active Problems No known active problems Social History Tobacco Use Types Packs/Day Years Used Date Smoking Tobacco: Former Cigarettes Q uit: 2023 Smokeless Tobacco: Never Tobacco Cessation:Counseling Given: Not Answered Sex and Gender Information Value Date Recorded Sex Assigned at Male 04/22/2024 3:05 PM EST Legal Sex Male 12:03 PM EDT Gender Identity Male 04/22/2024 3:05 PM EST Sexual Orientation Choose not to disclose 2024 3:05 PM EST Last Filed Vital Signs Vital Sign Reading Time Taken Comments Blood Pressure 128/80 02/09/2010 8:24 AM EDT Pulse 68 02/09/2010 8:24 AM EDT Temperature - - Respiratory Rate - - Oxygen Saturation - - Inhaled Oxygen Concentration - - Weight 109 kg (240 lb) 04/28/2024 8:35 AM EST Height 185.4 cm (6' 1 ) 04/28/2024 8:35 AM EST Body Mass Index 31.66 04/28/2024 8:35 AM EST Plan of Treatment Health Maintenance Due Date Last Done Comments Hepatitis C Virus Screening 1979 HIV Screening 1992 DTaP/Tdap/Td Vaccines (1 - Tdap) 1998 Hepatitis B Vaccines (1 of 3 - 19+ 3-dose series) 1998 Colonoscopy 2024 Influenza Vaccine 11/05/2024 COVID-19 Vaccine (2024-2 6 season) 2024 11/22/2020, 10/25/2020 HPV Vaccines (No Doses Required) Completed Pneumococcal Vaccine: Pediatric (0-5 Years) and At-Risk Patients (6 to 49 Years) Aged Out No longer eligible b ased on patient's age to complete this topic Insurance Group Therapy Records Group Therapy Records Group Therapy Records Care Teams Well Puller Head Relationship Specialty Start Date End Date Sly Marrero DO [address] [place] [address] PCP - General Internal Medicine 04/28/24
--- OUTSIDE RECORDS SUMMARY | 2025-02-25 13:45 | XMS_ITS | Data Portability ---
Author Organization [place] [facility], autoContract - [facility] Address [address] [place] [address] Assessment No assessment recorded. Plan of Treatment Reminders Order Date Submit Date Provider Last Modified By Organization Details Last Modified Time Details Appointments None recorded. Lab None recorded. Referral None recorded. Procedures None recorded. Surgeries None recorded. Imaging None recorded. Medication Orders amoxicillin 500 mg capsule 2024 025 [facility]/Pharmacy #[facility], [address] [place], [address], 05:02:06 Patient TargetsNo targets recorded. Patient Instructions Encounter Date Encounter Id Patient Instructions Last Modified By Organization Details Last Modified Time 12/22/2024 [id number] Patient presents with signs/symptoms of otitis media Supportive care reviewed: humidifier use raise HOB saline nasal spray encourage PO fluids Based on the findings today we will start medication Recommended acetaminophen/ibu profen PRN Pain fever body aches (ibuprofen recommended for 6 mo of age and above) Reviewed symptomatic care instructions, the expected course of these illnesses and explained that coughing can persist for some time if this is a symptom of today's visit for illness. Provided precautions for signs of worsening disease and instructions on contacting us if symptoms worsen. [email or web address] Not available 12/22/2024 10:17:14 - Informed pt that he has an ear infection in his right ear and an antibiotic will be sent to the pharmacy - Amoxicillin 500mg sent to the pharmacy. Pt is to take it twice a day for 10 days - No other questions or concerns at this time [email or web address] Not available 12/22/2024 10:17:11 Reason for Referral None Reported. Problems No Known Problems Procedures Surgical History Date Name Laterality Status Provider Name and Address Organization Details Recorded Time arthroscopy of knee completed Shalini [facility] 12/22/2024 09:57:27 Imaging Results None recorded. Procedure Notes None recorded. Medical Equipment None Reported. Allergies No known drug allergies Medications Name Sig Start Date Stop Date Status Note LastModified by Organization Details LastModified Time amoxicillin 500 mg capsule Take 1 capsule twice a day by oral route for 10 days. 01/08 completed Not Available Not Available Not Available ondansetron HCl 4 mg tablet TAKE 1 TABLET EVERY 6-8 HOURS BY ORAL ROUTE NEEDED, FOR NAUSEA. 12/22 completed Not Available Not Available Not Available aspirin 325 mg tablet,herminia yed release TAKE 1 TABLET(S) EVERY DAY BY MOUTH BEGINNING THE DAY AFTER SURGERY. 12/22 completed Not Available Not Available Not Available naproxen 500 mg tablet TAKE 1 TABLET(S) 2 TIMES A DAY BY ORAL ROUTE FOR 5 DAYS. TAKE WITH FOOD. 12/22 completed Not Available Not Available Not Available oxycodone 5 mg tablet TAKE 1 TABLET(S) EVERY 4-6 HOURS BY ORAL ROUTE NEEDED FOR MODERATE TO SEVERE PAIN 12/22 completed Not Available Not Available Not Available Vitals Date Recorded Body weight Heart rate Oxygen saturation Body temperature Systolic And Diastolic Provider Name and Address Organization Details Last Updated DateTime 5 247075. 16 g 73 /min 99 % 97.6 [degF] 124/80 mm[Hg] Shalini [facility] 09:53:17 Social History None recorded. Functional Status None recorded. Mental Status None recorded. Family History Relationship Description Onset Age of this Age Resolved Age Notes LastModified by Organization Details LastModified Time Father Alcohol dependence [email or web address] Not available 12/22 09:57:12 Medical History Condition Response Allergies/Hayfever Y Immunizations Vaccine Type Date Status Note Provider Nam e and Address Organization Details Recorded Time COVID-19, mRNA, LNP-S, PF, 100 mcg/0.5mL dose or 50 mcg/0.25mL dose 10/25/2020 completed Not Available [facility] 09:38:57 COVID-19, mRNA, LNP-S, PF, 100 mcg/0.5mL dose or 50 mcg/0.25mL dose 11/22/2020 completed Not Available [facility] 09:38:57 Past Encounters Encounter ID Performer Location Encounter Start Date Encounter Closed Date Diagnosis/Indication Diagnosis SNOMED-CT Code Diagnosis ICD10 Code Diagnosis IMO Codes Diagnosis Note [id number] Kia Chris, DNP, CONSERVATION PLANNER [id number] [address] [place] [address] 12/22/2024 09:35:25 12/22/2024 10:21:06 Acute right otitis media 815937604 H66.91 [id number] Health Concerns Section Related Observation LastModified by Organization Detai ls LastModified Time None Recorded Concern Status LastModified by Organization Details LastModified Time None Recorded Advance Directives Directive None Recorded Payers Insurance Date Sequence Insurance Name Policy Number Policy Monet Covered Member ID Monet Member ID Guarantor Name 12/22/2024 1 [employer] [facility] ([facility]) Jake Champfito [id number] Jakestacey Self 01/03/2025 1 [facility] - [employer] ([facility]) Jake Champagne [id number] Jake Champagne Notes Date Note Type Note Provider Name and Address Organization Details Recorded Time 12/22/2024 text/html ROS as noted in the HPI Pt is here for establish care. Previous PCP was Dr. Flores last physical was over the spring/summer this year. Sees glass worker Dr. Demetris Bergman out of [place] annually. Has seen Dr. Jolly with orthopedics, last visit was in August. Was seeing him for some knee issues, does not need to follow up with them at this time. No other physicians or specialists seen routinely. Pt has been having some fullness feeling in his right ear, began a couple days ago. Pt states that last night he did use a q-tip in the ear but states he was very careful to not push the q-tip in very far but did feel as though there was some relief when he did use it. Pt states he did have a crown fixed on Friday on that same side and isn't sure if this is correlated to that. No drainage from ear, no fever, no cough, no n/v, did start with a sore throat on Friday. Started taking Zicam on Friday. No other medications used. Kia Perez DNP, CONSERVATION PLANNER [address] [place], [address], [facility] - [facility] 12/27/2024 10:22:49
--- OUTSIDE RECORDS SUMMARY | 2025-02-25 13:45 | XMS_ITS ---
Author Name [facility] Organization Unknown History of Medication Use Medication Directions Dispensed Refills Start Date End Date Stat amoxicillin 500 mg capsule Take 1 capsule twice a day by oral route for 10 days. 12/22/2024 active aspirin 325 mg tablet,delayed release TAKE 1 TABLET(S) EVERY DAY BY MOUTH BEGINNING THE DAY AFTER SURGERY. 12/22/2024 completed naproxen 500 mg tablet TAKE 1 TABLET(S) 2 TIMES A DAY BY ORAL ROUTE FOR 5 DAYS. TAKE WITH FOOD. 12/22/2024 completed ondansetron HCl 4 mg tablet TAKE 1 TABLET EVERY 6-8 HOURS BY ORAL ROUTE NEEDED, FOR NAUSEA. 12/22/2024 completed oxycodone 5 mg tablet TAKE 1 TABLET(S) EVERY 4-6 HOURS BY ORAL ROUTE NEEDED FOR MODERATE TO SEVERE PAIN 12/22/2024 completed amoxicillin 500 mg capsule active No known medications No known medications active valACYclovir HCl 500 MG valACYclovir HCl 500 MG suspended Problems Problem Status Onset Date Problem Type Date of Resoluti on Source EARLENE (obstructive sleep apnea) [facility] Vaccine Date Source Lot Number Status SARS-COV-2 (COVID-19) vaccin e, mRNA, spike protein, LNP, preservative free, 100 mcg/0.5mL dose 11/22/2020 [email or web address] [id number] completed SARS-COV-2 (COVID-19) vaccin e, mRNA, spike protein, LNP, preservative free, 100 mcg/0.5mL dose 10/25/2020 [email or web address] [id number] completed Encounters Encounter Type Encounter Reason Primary Diagnosis Location Date [facility]ulatory [facility] 01/03/2025 Ambulatory [facility] 12[facility]22[facility]2024 [facility]24 Ambulatory Obstructive sleep apnea (adult) (pediatric) Obstructive sleep apnea (adult) (pediatric) [facility] 08/18/2024 Ambulatory Obstructive sleep apnea (adult) (pediatric) Obstructive sleep apnea (adult) (pediatric) [facility] 04/28/2024 Ambulatory [facility] 02/18/2024 [facility] 01/30/2024 [facility]ulatory [facility] 01/16/2024 [facility] 01/16/2024 [facility]ulatory [facility] 11/04/2023 Ambulatory [facility] 09/11/2023 Ambulatory [facility] 09/10/19 Ambulatory [facility] 08/26/2023 [facility]ulatory [facility] 08/22/2023 [facility]ulatory [facility] 08/04/2023 Ambulatory Unilateral primary osteoarthritis, right knee Unilateral primary osteoarthritis, right knee [facility] 02/18/2023 Ambulatory Unilateral primary osteoarthritis, right knee Unilateral primary osteoarthritis, right knee [facility] 02/18/2023 Ambulatory [facility] 01/22/2023 Care Team Organization Name Specialty Phone Email Start Date End Da te [facility]an [facility] 08/18[facility]2024 [facility] Sly Montañoan [facility] 04/28/2024 [facility] 09/11/2023 [facility] TOVAR [facility] 04/27/2023 [facility] PCP,No Primary Care 02/18/2023 09/16/2024 [facility] NO PCP Primary Care 02/18/2023 04/15/2023 [facility] 02/18/2023 02/18/2023 Kia Perez APRN PLLC; HUMAN RESOURCE INTERN [facility] 01/03/2022 11/24/2023
== END 2025-02-25 14:19 | disposition home or self-care (01) ==
LOC: HO.HID 13:24
PROVIDERS: PCP Internal Medicine; Visit Provider Internal Medicine
DX: R21 Rash and other nonspecific skin eruption (principal)
CPT/HCPCS: 99203